=== PATIENT | female | born 1960 | race American Indian/Alaskan Native ===

== ENCOUNTER 2024-03-01 04:36 | Day surgery (SDC) | payer MEDICARE ==
[2024-03-01] MEDS ORDERED: Lidocaine HCl 4% Cream 5 GM ONE (13:02)
== END 2024-03-01 23:00 | disposition home or self-care (01) ==
LOC: WOUND 04:36
DX: S91.002A Unspecified open wound, left ankle, initial encounter (principal); L97.522 Non-pressure chronic ulcer of other part of left foot with fat layer exposed; I73.9 Peripheral vascular disease, unspecified; X58.XXXA Exposure to other specified factors, initial encounter; F17.210 Nicotine dependence, cigarettes, uncomplicated; J44.9 Chronic obstructive pulmonary disease, unspecified; I48.91 Unspecified atrial fibrillation; I25.10 Atherosclerotic heart disease of native coronary artery without angina pectoris; I25.2 Old myocardial infarction; M06.9 Rheumatoid arthritis, unspecified
CPT/HCPCS: 99281; A6213; A9270; G0463

== ENCOUNTER 2024-03-01 13:41 | Emergency (ER) | payer MEDICARE ==
[~2024-03-01] VITALS: Ht 154.9 cm; Wt 40.8 kg
[2024-03-01] MEDS ORDERED: Methadone HCL 10 MG TAB PO ONE (14:10)
== END 2024-03-01 14:43 | disposition home or self-care (01) ==
LOC: ER 13:41
DX: Z76.89 Persons encountering health services in other specified circumstances (principal)
CPT/HCPCS: A9270

== ENCOUNTER 2024-03-24 13:32 | Emergency (ER) | payer MEDICARE ==
[~2024-03-24] VITALS: Ht 152.4 cm; Wt 36.7 kg
[2024-03-24 14:37] LABS: Base Excess Venous 3.3 mmol/L; Bicarbonate Venous 26.2 mmol/L (24.0-30.0); PCO2 Venous 54.8 mmHg (38-42); pH Blood Venous 7.34 (7.34-7.37)
[2024-03-24 14:56] LABS: Albumin, Blood 3.3 g/dL (3.4-5.0); Albumin/Globulin Ratio 0.8 (0.8-1.8); Bilirubin, Total 0.2 mg/dL (0.1-1.0); Bun/Creatinine Ratio 17.7 (12.0-20.0); Calcium, Blood 8.5 mg/dL (8.5-10.1); Creatinine, Blood 0.73 mg/dL (0.40-1.00); Potassium, Blood 4.3 mmol/L (3.5-5.5); Total Protein, Blood 7.3 g/dL (6.4-8.2)
[2024-03-24 15:04] LABS: BASOPHILS PERCENT AUTO 1 % (0-2); EOSINOPHILS ABSOLUTE AUTO 0.15 K/mm3 (0.00-0.68); EOSINOPHILS PERCENT AUTO 2 % (0-6); Hemoglobin 12.9 g/dL (11.5-16.0); IMMATURE GRAN ABSOLUTE AUTO 0.09 K/mm3 (0.00-0.10); IMMATURE GRAN PERCENT AUTO 1 % (0-1); LYMPHOCYTES ABSOLUTE AUTO 3.05 K/mm3 (0.84-5.20); LYMPHOCYTES PERCENT AUTO 32 % (21-46); MONOCYTES PERCENT AUTO 8 % (4-13); Mean Corpuscular HGB 30.1 pg (26.0-34.0); Mean Corpuscular HGB Conc 32.3 g/dL (31.5-36.5); Mean Corpuscular Volume 94 fL (80-100); Mean Platelet Volume 8.8 fL (9.1-12.4); NEUTROPHILS ABSOLUTE AUTO 5.31 K/mm3 (1.96-9.15); NEUTROPHILS PERCENT AUTO 56 % (41-73); Platelet Count 235 K/mm3 (150-400); RDW Coefficient Variation 14.6 % (11.7-14.2); RDW Standard Deviation 50.5 fL (35.1-46.3); Red Blood Cell Count 4.28 M/mm3 (3.80-5.20)
== END 2024-03-24 18:15 ==
LOC: ER 13:32
PROVIDERS: Emergency Medicine
DX: S00.83XA Contusion of other part of head, initial encounter (principal); F43.9 Reaction to severe stress, unspecified; W18.30XA Fall on same level, unspecified, initial encounter
CPT/HCPCS: 70450; 80053; 82803; 85025; 93005; 93010; 99284-25

== ENCOUNTER 2024-03-30 10:10 | Day surgery (SDC) | payer MEDICARE | END 2024-03-30 23:00 | disposition home or self-care (01) | LOC: WOUND 10:10 | DX: T81.31XA Disruption of external operation (surgical) wound, not elsewhere classified, initial encounter (principal); I70.248 Atherosclerosis of native arteries of left leg with ulceration of other part of lower leg; L97.822 Non-pressure chronic ulcer of other part of left lower leg with fat layer exposed; Z72.0 Tobacco use; Y83.8 Other surgical procedures as the cause of abnormal reaction of the patient, or of later complication, without mention of misadventure at the time of the procedure | CPT/HCPCS: A6213; G0463 ==

== ENCOUNTER 2024-04-06 01:33 | Day surgery (SDC) | payer MEDICARE, OTHER ==
[2024-04-06] MEDS ORDERED: Lidocaine HCl 4% Cream 5 GM ONE (08:51)
== END 2024-04-06 23:00 | disposition home or self-care (01) ==
LOC: WOUND 01:33
DX: T81.30XA Disruption of wound, unspecified, initial encounter (principal); S81.812A Laceration without foreign body, left lower leg, initial encounter; L97.822 Non-pressure chronic ulcer of other part of left lower leg with fat layer exposed; I73.9 Peripheral vascular disease, unspecified; Z72.0 Tobacco use
CPT/HCPCS: A6213; A9270; G0463

== ENCOUNTER 2024-04-08 20:05 | Inpatient (IN) | payer MEDICARE ==
[~2024-04-08] VITALS: Ht 157.5 cm; Wt 38.2 kg
[2024-04-08 20:53] LABS: BASOPHILS ABSOLUTE AUTO 0.06 K/mm3 (0.00-0.23); BASOPHILS PERCENT AUTO 0 % (0-2); EOSINOPHILS ABSOLUTE AUTO 0.01 K/mm3 (0.00-0.68); EOSINOPHILS PERCENT AUTO 0 % (0-6); Hematocrit 38.9 % (33.0-51.0); IMMATURE GRAN ABSOLUTE AUTO 0.14 K/mm3 (0.00-0.10); IMMATURE GRAN PERCENT AUTO 1 % (0-1); LYMPHOCYTES ABSOLUTE AUTO 2.28 K/mm3 (0.84-5.20); LYMPHOCYTES PERCENT AUTO 9 % (21-46); MONOCYTES ABSOLUTE AUTO 2.18 K/mm3 (0.16-1.47); MONOCYTES PERCENT AUTO 9 % (4-13); Mean Corpuscular HGB Conc 33.4 g/dL (31.5-36.5); Mean Corpuscular Volume 90 fL (80-100); NEUTROPHILS ABSOLUTE AUTO 19.71 K/mm3 (1.96-9.15); NEUTROPHILS PERCENT AUTO 81 % (41-73); Platelet Count 201 K/mm3 (150-400); RDW Coefficient Variation 15.3 % (11.7-14.2); RDW Standard Deviation 50.4 fL (35.1-46.3); Red Blood Cell Count 4.33 M/mm3 (3.80-5.20); White Blood Cell Count 24.38 K/mm3 (4.00-11.30)
[2024-04-08 21:16] LABS: Albumin, Blood 3.5 g/dL (3.4-5.0); Albumin/Globulin Ratio 0.7 (0.8-1.8); Bilirubin, Total 0.5 mg/dL (0.1-1.0); Bun/Creatinine Ratio 24.8 (12.0-20.0); Calcium, Blood 9.1 mg/dL (8.5-10.1); Creatinine, Blood 0.65 mg/dL (0.40-1.00); Globulin, Blood 4.9 g/dL (2.2-4.0); Potassium, Blood 4.4 mmol/L (3.5-5.5); Total Protein, Blood 8.4 g/dL (6.4-8.2)
[2024-04-09] MEDS ORDERED: Morphine Sulfate 4 MG/1 ML Injection IV ONE (00:50)
[2024-04-09] MEDS ORDERED: Ketorolac Tromethamine 15mg Vial IV ONE (00:50)
[2024-04-09] MEDS ORDERED: Ondansetron HCl 2 MG / ML 2ML Vial IV ONE (00:50)
[2024-04-09] MEDS ORDERED: NS 1,000 ML IV SCH (00:55)
[2024-04-09] MEDS ORDERED: Piperacillin/Tazobactam Sod 3.375 GM in NS 100 ML IV ONE (00:55)
[2024-04-09] MEDS ORDERED: FLU VACC TS2024-25(6MOS UP)/PF 45 MCG/0.5 ML SYRINGE IM ONE ×2 (01:50→09:00)
[2024-04-09] MEDS ORDERED: Nicotine Polacrilex 2 MG Gum PO PRN ×2 (02:30→14:00)
[2024-04-09] MEDS ORDERED: Vancomycin HCL 1,250 MG in NS 250 ML IV ONE (03:00)
--- NOTE | 2024-04-09 03:15 | NUR ---
PT ADMITTED FROM THE ED. REPORT RECIEVED FROM BAUTISTA REDDY RN. PT'S PIN DRAFTING MACHINE TENDER PRESENT DURING ADMIT.
[2024-04-09 03:31] VITALS: BP 98/63
[2024-04-09] MEDS ORDERED: METH40 PO (03:40)
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
[2024-04-09 06:54] VITALS: BP 95/61
[2024-04-09] MEDS ORDERED: Methadone HCL 10 MG TAB PO SCH (09:00)
[2024-04-09] MEDS ORDERED: Enoxaparin 40 MG/0.4 ML SYR SC SCH (09:00)
[2024-04-09 15:06] VITALS: BP 111/70
[2024-04-09] MEDS ORDERED: Vancomycin HCL 750 MG in NS 250 ML IV SCH (16:00)
--- NOTE | 2024-04-09 17:30 | NUR ---
SHIFT SUMMARY PT CONT PLAN OF CARE. PT NOTED TO BE A&OX4 AND SBA WITH TRANSFERS. PT NOTED TO HAVE CONSULT WITH ORTHO. PLAN IS FOR PT TO BE NPO AT MIDNIGHT IN REGARDS TO NEEDING SURGERY ON LLE TO GET RID OF FLUID.
[2024-04-09 20:47] VITALS: BP 109/62
[2024-04-09] MEDS ORDERED: Ketorolac Tromethamine 15mg Vial IV PRN (21:45)
--- NOTE | 2024-04-09 22:09 | NUR ---
Pt with increase pain in LLE, anxiety level high also d/t addiction, and pain in leg, physician notified and ordered torodol, this appears to be helping at the time.
[2024-04-10] VITALS (13 sets, daily range): BP systolic 93–134; BP diastolic 63–83
--- NOTE | 2024-04-10 05:06 | NUR ---
Pt here for cellulitis of the LLE, near ankle, and on posterior side of leg. Pt with pain, but not as bad as when she arrived, using torodol every 6 hrs prn. NPO since midnight for I&D of abcsess in leg. BC pending, up independently. Remains on antibiotics, last WBC was 24.38, CRP elevated at admit. afebrile, VS WNL, voiding independently.
[2024-04-10] MEDS ORDERED: Albuterol HFA200 ACT/6.7 GM INH INH PRN (10:35)
[2024-04-10] MEDS ORDERED: Ondansetron 4 MG TAB PO PRN (11:20)
[2024-04-10 15:40] LABS: Creatinine, Blood 0.55 mg/dL (0.40-1.00); Vancomycin, Trough 12.2 ug/mL (5.0-10.0)
[2024-04-10] MEDS ORDERED: Lactated Ringer's 1,000 ML IV SCH (16:35)
--- NOTE | 2024-04-10 16:58 | NUR ---
PT TO UNIT VIA [facility]. PT TRAN[facility]ERRED TO [facility]. Pre-Op teaching done. Pt verbalizes understanding. History, Chart, Medications and Allergies reviewed before start of procedure.
[2024-04-10] MEDS ORDERED: FentaNYL Citrate 50 MCG/ML 2 ML Injection ONE (17:10)
[2024-04-10] MEDS ORDERED: HYDROmorphone HCl/Pf 1MG SYR IV PRN (17:10)
[2024-04-10] MEDS ORDERED: propofoL 20 ML IV ONE (17:10)
[2024-04-10] MEDS ORDERED: Dexamethasone Sod Phos 10 MG/ML 1ML VIAL ONE (17:12)
[2024-04-10] MEDS ORDERED: Ondansetron HCl 2 MG / ML 2ML Vial ONE (17:12)
[2024-04-10] MEDS ORDERED: Ketorolac Tromethamine 30mg Vial ONE (17:12)
[2024-04-10] MEDS ORDERED: Albuterol 2.5 MG/3 ML VIAL INH PRN (17:15)
[2024-04-10] MEDS ORDERED: FentaNYL Citrate 50 MCG/ML 2 ML Injection IV PRN (17:15)
[2024-04-10] MEDS ORDERED: Droperidol 5 mg/2 ml Vial IV PRN (17:25)
--- NOTE | 2024-04-10 18:11 | NUR ---
PT CONT WITH PLAN OF CARE. PT IS A&O X4 AND SBA WITH TRANSFERS WITH WALKER. PT NOTED TO BE ANXIOUS RE: HAVING SURGERY ON LLE FOR I&D. PT LEFT FOR SURGERY AROUND 1620 THIS SHIFT AND IS CURRENTLY STILL OFF UNIT. PT SCUBA DIVER WITH BARBARA ZAMBRANO CALLED AND RECEIVED AN UPDATE RE TO PT PER PT REQUEST. WENDY ALSO ASKED TO BE CALLED ONCE PT RETURNS FROM [facility]. PHONE NUMBER TO BE REACHED AT IS [phone].
[2024-04-10] MEDS ORDERED: Docusate Sodium 100 MG Cap PO SCH (21:00)
[2024-04-11 02:13] VITALS: BP 126/88
--- NOTE | 2024-04-11 05:36 | NUR ---
Pt slept on and off through night. up to BR independently. dressing from surgery intact. VS WNL, PO intake good. denies pain. Pt does have an external hemrrhoid which is causing issue, will request a cream to use. IV in Rt. wrist infiltrated, and new site in LFA accessed. no other problems.
[2024-04-11 06:14] LABS: BASOPHILS ABSOLUTE AUTO 0.02 K/mm3 (0.00-0.23); BASOPHILS PERCENT AUTO 0 % (0-2); EOSINOPHILS PERCENT AUTO 0 % (0-6); Hemoglobin 11.1 g/dL (11.5-16.0); IMMATURE GRAN ABSOLUTE AUTO 0.02 K/mm3 (0.00-0.10); IMMATURE GRAN PERCENT AUTO 0 % (0-1); LYMPHOCYTES ABSOLUTE AUTO 1.35 K/mm3 (0.84-5.20); LYMPHOCYTES PERCENT AUTO 18 % (21-46); MONOCYTES ABSOLUTE AUTO 0.64 K/mm3 (0.16-1.47); MONOCYTES PERCENT AUTO 8 % (4-13); Mean Corpuscular HGB 30.4 pg (26.0-34.0); Mean Corpuscular HGB Conc 32.6 g/dL (31.5-36.5); Mean Corpuscular Volume 93 fL (80-100); Mean Platelet Volume 10.1 fL (9.1-12.4); NEUTROPHILS ABSOLUTE AUTO 5.65 K/mm3 (1.96-9.15); NEUTROPHILS PERCENT AUTO 74 % (41-73); Platelet Count 211 K/mm3 (150-400); RDW Coefficient Variation 15.3 % (11.7-14.2); RDW Standard Deviation 52.6 fL (35.1-46.3); Red Blood Cell Count 3.65 M/mm3 (3.80-5.20); White Blood Cell Count 7.68 K/mm3 (4.00-11.30)
[2024-04-11 06:26] LABS: Albumin, Blood 2.6 g/dL (3.4-5.0); Anion Gap 11 mmol/L (3-11); Blood Urea Nitrogen 16 mg/dL (8-24); Bun/Creatinine Ratio 30.6 (12.0-20.0); CO2, Blood 26 mmol/L (21-32); Calcium, Blood 8.6 mg/dL (8.5-10.1); Chloride, Blood 105 mmol/L (98-108); Creatinine, Blood 0.52 mg/dL (0.40-1.00); Glomerular Filtration Rate 103 (60-); Glucose, Blood 133 mg/dL (70-99); Phosphorus, Blood 4.1 mg/dL (2.5-4.9); Potassium, Blood 4.5 mmol/L (3.5-5.5); Sodium, Blood 137 mmol/L (136-145)
[2024-04-11 07:53] VITALS: BP 138/77
[2024-04-11] MEDS ORDERED: Arginine/Glutamine/Calcium Hmb 1 Packet PO SCH (09:00)
[2024-04-11] MEDS ORDERED: JUVEN PACKET1 EAC3 PO (12:50)
[2024-04-11] MEDS ORDERED: DOCU100 PO (12:51)
[2024-04-11] MEDS ORDERED: VISBIOME 112.51 EACH PO (12:51)
[2024-04-11] MEDS ORDERED: IBUP400 PO (12:52)
[2024-04-11] MEDS ORDERED: SULFAMETHOXAZO1 EAC1 PO (12:52)
--- NOTE | 2024-04-11 13:20 | NUR ---
DISCHARGE NOTE: DISCUSSED DISCHARGE WITH THE PATIENT AND HIS ROTATIONAL MOULDING OPERATOR WENDY. PATIENT GOT HERSELF DRESSED, COLLECTED BELONGINGS, IV WAS REMOVED. PATIENT WAS ABLE TO WALK DOWN WITH HER PERSONAL WALKER WITH ROTATIONAL MOULDING OPERATOR, NO SIGNS OR SYMPTOMS OF DISTRESS WITH DISCHARGE.
== END 2024-04-11 13:12 | disposition home or self-care (01) | DRG 988 ==
LOC: ER 20:05 → MEDS 20:06
PROVIDERS: Emergency Medicine; Internal Medicine; Orthopaedic Surgery; Student in an Organized Health Care Education/Training Program; ADMIT Student in an Organized Health Care Education/Training Program
PROC: 0LC Tendons, Extirpation (ICD-10-PCS; principal; 2024-04-10 07:45)
DX: L03.116 Cellulitis of left lower limb (principal); L02.612 Cutaneous abscess of left foot; Z59.00 Homelessness unspecified; T81.30XA Disruption of wound, unspecified, initial encounter; L97.822 Non-pressure chronic ulcer of other part of left lower leg with fat layer exposed; Z66 Do not resuscitate; S81.812A Laceration without foreign body, left lower leg, initial encounter; I73.9 Peripheral vascular disease, unspecified; J44.9 Chronic obstructive pulmonary disease, unspecified; F17.210 Nicotine dependence, cigarettes, uncomplicated; F11.10 Opioid abuse, uncomplicated; Z79.2 Long term (current) use of antibiotics; Z79.899 Other long term (current) drug therapy; B18.2 Chronic viral hepatitis C; Z90.710 Acquired absence of both cervix and uterus; Z98.890 Other specified postprocedural states
CPT/HCPCS: 36415; 73701; 80053; 80069; 80202; 82565; 83605; 85025; 86141; 87040; 90656; 93005; 93010; 94760; 96361; 96365-59; 96366; 96367; 96372; 96375-59; 99284; A6213; A9270; G0378; G0463; J1100; J1650; J1885; J2270; J2405; J2543; J2704; J3010; J3370; J7030; J7050; J7120; Q9967

== ENCOUNTER 2024-04-12 13:57 | Emergency (ER) | payer MEDICARE ==
[~2024-04-12] VITALS: Ht 152.4 cm; Wt 36.3 kg
[~2024-04-12 13:57] MED LIST: DOCU100 PO; IBUP400 PO; JUVEN PACKET1 EAC3 PO; METH40 PO; SULFAMETHOXAZO1 EAC1 PO; VISBIOME 112.51 EACH PO
== END 2024-04-12 18:08 | disposition home or self-care (01) ==
LOC: ER 13:57
DX: K62.3 Rectal prolapse (principal); Z79.899 Other long term (current) drug therapy
CPT/HCPCS: 99283

== ENCOUNTER 2024-04-13 05:23 | Day surgery (SDC) | payer MEDICARE, OTHER | END 2024-04-13 23:00 | disposition home or self-care (01) | LOC: WOUND 05:23 | DX: T81.33XD Disruption of traumatic injury wound repair, subsequent encounter (principal); I73.9 Peripheral vascular disease, unspecified; Z72.0 Tobacco use | CPT/HCPCS: A6213; G0463 ==

== ENCOUNTER 2024-04-27 04:34 | Day surgery (SDC) | payer MEDICARE ==
[2024-04-27] MEDS ORDERED: Lidocaine HCl 4% Cream 5 GM ONE (08:41)
== END 2024-04-27 23:00 | disposition home or self-care (01) ==
LOC: WOUND 04:34
DX: T81.31XA Disruption of external operation (surgical) wound, not elsewhere classified, initial encounter (principal); I73.9 Peripheral vascular disease, unspecified; Z72.0 Tobacco use
CPT/HCPCS: A6213; A9270

== ENCOUNTER 2024-05-04 02:07 | Day surgery (SDC) | payer MEDICARE ==
[2024-05-04] MEDS ORDERED: Lidocaine HCl 4% Cream 5 GM ONE (08:51)
== END 2024-05-04 23:00 | disposition home or self-care (01) ==
LOC: WOUND 02:07
DX: T81.31XA Disruption of external operation (surgical) wound, not elsewhere classified, initial encounter (principal); S91.002D Unspecified open wound, left ankle, subsequent encounter; L97.822 Non-pressure chronic ulcer of other part of left lower leg with fat layer exposed; I73.9 Peripheral vascular disease, unspecified; Z72.0 Tobacco use; Y83.8 Other surgical procedures as the cause of abnormal reaction of the patient, or of later complication, without mention of misadventure at the time of the procedure; X58.XXXD Exposure to other specified factors, subsequent encounter
CPT/HCPCS: A6213; A9270

== ENCOUNTER 2024-05-08 06:24 | Emergency (ER) | payer MEDICARE ==
[~2024-05-08] VITALS: Ht 154.9 cm; Wt 39.5 kg
[2024-05-08] MEDS ORDERED: FentaNYL Citrate 50 MCG/ML 2 ML Injection IV ONE (07:10)
== END 2024-05-08 09:14 | disposition home or self-care (01) ==
LOC: ER 06:24
DX: K62.3 Rectal prolapse (principal); Z79.899 Other long term (current) drug therapy
CPT/HCPCS: 99283; J3010

== ENCOUNTER 2024-05-11 00:59 | Day surgery (SDC) | payer MEDICARE, OTHER ==
[2024-05-11] MEDS ORDERED: Lidocaine HCl 4% Cream 5 GM ONE (09:21)
== END 2024-05-11 23:00 | disposition home or self-care (01) ==
LOC: WOUND 00:59
DX: T81.31XA Disruption of external operation (surgical) wound, not elsewhere classified, initial encounter (principal); S91.002D Unspecified open wound, left ankle, subsequent encounter; L97.822 Non-pressure chronic ulcer of other part of left lower leg with fat layer exposed; I73.9 Peripheral vascular disease, unspecified; Z72.0 Tobacco use; X58.XXXD Exposure to other specified factors, subsequent encounter; Y83.8 Other surgical procedures as the cause of abnormal reaction of the patient, or of later complication, without mention of misadventure at the time of the procedure
CPT/HCPCS: A6213; A9270

== ENCOUNTER 2024-05-18 04:56 | Day surgery (SDC) | payer MEDICARE ==
[2024-05-18] MEDS ORDERED: Lidocaine HCl 4% Cream 5 GM ONE (09:14)
[2024-05-18] MEDS ORDERED: Silver Nitr/Potassium Nitrate 1 EA APPL ONE (09:55)
== END 2024-05-18 23:00 ==
LOC: WOUND 04:56
DX: T81.31XA Disruption of external operation (surgical) wound, not elsewhere classified, initial encounter (principal); S91.002D Unspecified open wound, left ankle, subsequent encounter; L97.822 Non-pressure chronic ulcer of other part of left lower leg with fat layer exposed; I73.9 Peripheral vascular disease, unspecified; Z72.0 Tobacco use; X58.XXXD Exposure to other specified factors, subsequent encounter; Y83.8 Other surgical procedures as the cause of abnormal reaction of the patient, or of later complication, without mention of misadventure at the time of the procedure
CPT/HCPCS: A6213; A9270

== ENCOUNTER 2024-05-25 01:32 | Day surgery (SDC) | payer MEDICARE, OTHER ==
[2024-05-25] MEDS ORDERED: Lidocaine HCl 4% Cream 5 GM ONE (09:30)
== END 2024-05-25 23:00 | disposition home or self-care (01) ==
LOC: WOUND 01:32
DX: T81.31XA Disruption of external operation (surgical) wound, not elsewhere classified, initial encounter (principal); S91.002D Unspecified open wound, left ankle, subsequent encounter; L97.822 Non-pressure chronic ulcer of other part of left lower leg with fat layer exposed; I73.9 Peripheral vascular disease, unspecified; Z72.0 Tobacco use; Y83.8 Other surgical procedures as the cause of abnormal reaction of the patient, or of later complication, without mention of misadventure at the time of the procedure
CPT/HCPCS: A6213; A9270

== ENCOUNTER 2024-05-29 14:30 | Emergency (ER) | payer MEDICARE ==
[~2024-05-29] VITALS: Ht 152.4 cm; Wt 39.5 kg
[2024-05-29] MEDS ORDERED: MAGCIT300 PO (18:08)
[2024-05-29] MEDS ORDERED: MIRALAX17 GM PO (18:08)
== END 2024-05-29 18:22 | disposition home or self-care (01) ==
LOC: ER 14:30
DX: K62.3 Rectal prolapse (principal); K59.00 Constipation, unspecified; Z79.899 Other long term (current) drug therapy
CPT/HCPCS: 99283

== ENCOUNTER 2024-06-01 02:13 | Day surgery (SDC) | payer MEDICARE, OTHER ==
[~2024-06-01 02:13] MED LIST changes: +MAGCIT300 PO; +MIRALAX17 GM PO
[2024-06-01] MEDS ORDERED: Lidocaine HCl 4% Cream 5 GM ONE (09:16)
== END 2024-06-01 23:00 | disposition home or self-care (01) ==
LOC: WOUND
DX: L97.322 Non-pressure chronic ulcer of left ankle with fat layer exposed (principal); S91.002D Unspecified open wound, left ankle, subsequent encounter; T81.31XD Disruption of external operation (surgical) wound, not elsewhere classified, subsequent encounter; I73.9 Peripheral vascular disease, unspecified; Z72.0 Tobacco use; X58.XXXD Exposure to other specified factors, subsequent encounter; Y83.8 Other surgical procedures as the cause of abnormal reaction of the patient, or of later complication, without mention of misadventure at the time of the procedure; K62.3 Rectal prolapse; J44.9 Chronic obstructive pulmonary disease, unspecified; B19.20 Unspecified viral hepatitis C without hepatic coma; Z79.891 Long term (current) use of opiate analgesic; Z79.83 Long term (current) use of bisphosphonates; Z79.2 Long term (current) use of antibiotics; Z88.2 Allergy status to sulfonamides
CPT/HCPCS: 80053; 85025; 99283; A6213; A9270

== ENCOUNTER 2024-06-01 17:55 | Emergency (ER) | payer MEDICARE ==
[~2024-06-01] VITALS: Ht 152.4 cm; Wt 39.5 kg
[2024-06-01 19:15] LABS: BASOPHILS PERCENT AUTO 1 % (0-2); EOSINOPHILS ABSOLUTE AUTO 0.29 K/mm3 (0.00-0.68); EOSINOPHILS PERCENT AUTO 2 % (0-6); Hematocrit 39.2 % (33.0-51.0); IMMATURE GRAN ABSOLUTE AUTO 0.07 K/mm3 (0.00-0.10); IMMATURE GRAN PERCENT AUTO 0 % (0-1); LYMPHOCYTES PERCENT AUTO 14 % (21-46); MONOCYTES ABSOLUTE AUTO 1.14 K/mm3 (0.16-1.47); MONOCYTES PERCENT AUTO 6 % (4-13); Mean Corpuscular HGB 30.3 pg (26.0-34.0); Mean Corpuscular HGB Conc 33.2 g/dL (31.5-36.5); Mean Corpuscular Volume 91 fL (80-100); Mean Platelet Volume 8.5 fL (9.1-12.4); NEUTROPHILS ABSOLUTE AUTO 14.29 K/mm3 (1.96-9.15); NEUTROPHILS PERCENT AUTO 78 % (41-73); Platelet Count 341 K/mm3 (150-400); RDW Coefficient Variation 13.9 % (11.7-14.2); RDW Standard Deviation 46.7 fL (35.1-46.3); Red Blood Cell Count 4.29 M/mm3 (3.80-5.20); White Blood Cell Count 18.39 K/mm3 (4.00-11.30)
[2024-06-01 19:32] LABS: Albumin/Globulin Ratio 0.6 (0.8-1.8); Bilirubin, Total 0.2 mg/dL (0.1-1.0); Calcium, Blood 8.6 mg/dL (8.5-10.1); Creatinine, Blood 0.77 mg/dL (0.40-1.00); Globulin, Blood 4.8 g/dL (2.2-4.0); Potassium, Blood 3.9 mmol/L (3.5-5.5); Total Protein, Blood 7.8 g/dL (6.4-8.2)
[2024-06-02] MEDS ORDERED: Diazepam 2 MG Tab PO ONE (01:15)
== END 2024-06-02 01:28 | disposition home or self-care (01) ==
LOC: ER 17:55
PROVIDERS: Student in an Organized Health Care Education/Training Program
DX: K62.3 Rectal prolapse (principal); J44.9 Chronic obstructive pulmonary disease, unspecified; B19.20 Unspecified viral hepatitis C without hepatic coma; Z79.891 Long term (current) use of opiate analgesic; Z79.83 Long term (current) use of bisphosphonates; Z79.2 Long term (current) use of antibiotics; Z79.1 Long term (current) use of non-steroidal anti-inflammatories (NSAID); Z88.2 Allergy status to sulfonamides
CPT/HCPCS: 80053; 85025; 99283; A9270

== ENCOUNTER 2024-06-15 02:25 | Day surgery (SDC) | payer MEDICARE, OTHER ==
[2024-06-15] MEDS ORDERED: Lidocaine HCl 4% Cream 5 GM ONE (09:20)
== END 2024-06-15 23:00 | disposition home or self-care (01) ==
LOC: WOUND 02:25
DX: L97.322 Non-pressure chronic ulcer of left ankle with fat layer exposed (principal); G62.9 Polyneuropathy, unspecified; T81.31XA Disruption of external operation (surgical) wound, not elsewhere classified, initial encounter; I73.9 Peripheral vascular disease, unspecified; Z72.0 Tobacco use
CPT/HCPCS: A9270

== ENCOUNTER 2024-06-22 00:52 | Day surgery (SDC) | payer MEDICARE ==
[2024-06-22] MEDS ORDERED: Lidocaine HCl 4% Cream 5 GM ONE (09:01)
== END 2024-06-22 23:00 | disposition home or self-care (01) ==
LOC: WOUND 00:52
DX: L97.322 Non-pressure chronic ulcer of left ankle with fat layer exposed (principal); G62.9 Polyneuropathy, unspecified; T81.31XD Disruption of external operation (surgical) wound, not elsewhere classified, subsequent encounter; I73.9 Peripheral vascular disease, unspecified; Z72.0 Tobacco use
CPT/HCPCS: A6213; A9270; G0463

== ENCOUNTER 2024-06-29 02:15 | Day surgery (SDC) | payer MEDICARE ==
[2024-06-29] MEDS ORDERED: Lidocaine HCl 4% Cream 5 GM ONE (09:24)
== END 2024-06-29 23:00 | disposition home or self-care (01) ==
LOC: WOUND 02:15
DX: L97.322 Non-pressure chronic ulcer of left ankle with fat layer exposed (principal); T81.31XD Disruption of external operation (surgical) wound, not elsewhere classified, subsequent encounter; I73.9 Peripheral vascular disease, unspecified; Z72.0 Tobacco use
CPT/HCPCS: A6213; A9270

== ENCOUNTER 2024-07-06 04:00 | Day surgery (SDC) | payer MEDICARE ==
[2024-07-06] MEDS ORDERED: Lidocaine HCl 4% Cream 5 GM ONE (09:05)
== END 2024-07-06 23:00 | disposition home or self-care (01) ==
LOC: WOUND 04:00
DX: L97.322 Non-pressure chronic ulcer of left ankle with fat layer exposed (principal); T81.31XA Disruption of external operation (surgical) wound, not elsewhere classified, initial encounter; G62.9 Polyneuropathy, unspecified; I73.9 Peripheral vascular disease, unspecified; Z72.0 Tobacco use
CPT/HCPCS: A9270

== ENCOUNTER 2024-08-18 02:58 | Day surgery (SDC) | payer MEDICARE ==
[2024-08-18] MEDS ORDERED: Lidocaine HCl 4% Cream 5 GM ONE (12:33)
== END 2024-08-18 23:00 | disposition home or self-care (01) ==
LOC: WOUND 02:58
DX: L97.329 Non-pressure chronic ulcer of left ankle with unspecified severity (principal); I73.9 Peripheral vascular disease, unspecified; Z72.0 Tobacco use; Z87.828 Personal history of other (healed) physical injury and trauma
CPT/HCPCS: A9270; G0463